=== PATIENT | female | born 2005 | race Two or more races ===

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

== ENCOUNTER 2025-01-19 14:34 | Outpatient (REF) | payer OTHER, SELFPAY | END 2025-01-19 14:35 | disposition home or self-care (01) | LOC: HO.LAB 14:34 | PROVIDERS: PCP Pediatrics; Visit Provider Pediatrics | DX: L65.0 Telogen effluvium (principal); L20.9 Atopic dermatitis, unspecified; F41.9 Anxiety disorder, unspecified; R00.0 Tachycardia, unspecified; Z13.39 Encounter for screening examination for other mental health and behavioral disorders | CPT/HCPCS: 36415; 84443; 96127 ==

== ENCOUNTER 2025-01-19 14:34 | Outpatient (AMB) | payer OTHER, SELFPAY ==
[2025-01-19 14:41] VITALS: BP 114/76; PULSE 67; TEMP 36.7; O2SAT 99; BMI 38.3
--- NOTE | 2025-01-19 14:41 | MHC.OFVISPED ---
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 no patches of hair loss. no scalp scaling or itching. she has been very stressed/ anxious and wonders if this is contributing 2) eczema has flared on wrists. previously resolved with triamcinolone but now flared again and no meds at home 3) anxiety. long standing issue and now is thinking she might benefit from meds. feels anxious all the time - about most things. working FT and very stressed about money. GF is having health issues and now so is GM. has a lot of trouble sleeping - frets/worries about things and will be up until 3 am. goes on her phone when she cant sleep which she knows makes things worse. no panic attacks - had when younger but not recently. [facility] Medical History (Updated 01/19/25 @ 15:09 by Flores Diana MD) Anxiety Frequent headaches Obesity Surgical History No pertinent past surgical history Family History Mother No problems noted. Father No problems noted. Brother No problems noted. Maternal Aunt Migraine Social History Household Members: Family Housing: House Alcohol intake: never Patient Tobacco Use Status: Never used Tobacco e-Cigarette/Vaping Use: Never Used Second Hand Smoke Exposure: No Cognitive needs: No Hearing needs: No Vision needs: No (Sees Eye Dr) Review of Systems Const Reports as per HPI Skin Reports as per HPI Psych Reports as per HPI Pediatric Exam Const Constitutional General: cooperative and no acute distress Resp Effort & Inspection: normal respiratory effort Skin General: other (eczema) Hair: general thinning (with visible new hair growth. 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 (2) Atopic eczema: Code(s): L20.9 - Atopic dermatitis, unspecified Category: Medical Plan: rx sent (3) Anxiety: Code(s): F41.9 - Anxiety disorder, unspecified Category: Medical Plan: Discussed medication for anxiety. discussed mechanism of action for SSRI and for hydroxyzine. Reviewed potential side effects and adverse reactions including BBW. Rx sent for sertraline + hydroxyzine as prn for sleep. Advised crisis for any suicidal ideation. Followup in 3 weeks. Orders: Orders TSH reflex Free T4 Today R00.0 - Tachycardia, unspecified Medications: New sertraline take 12.5 mg (0.5 tab) by mouth once daily for 1 week then increase to 25 mg (one tab)by mouth once daily 30 tabs 0RF hydroxyzine HCl can increase to 25 mg (1 tab) prn effect 12.5 mg (1/2 x 25 mg) PO BEDTIME PRN 30 tabs 0RF insomnia Refilled triamcinolone acetonide 0.025% 1 appl topical BID 80 grams 1RF 14 days Coding Level of Care Code Est Pt Level 4 (39902) Diagnoses Telogen effluvium L65.0 Atopic eczema L20.9 Anxiety F41.9 Additional Codes SHABBIR-7 Assessment Billing - SHABBIR-7 Assessment Tool: SHABBIR-7 Assessment 14378 ([id number]) SHABBIR-7 AMB Questionnaire SHABBIR-7 Date SHABBIR - 7 assessed: 01/19/25 Feeling nervous, anxious, or on edge: 3 = Nearly every day Not being able to stop or control worryin = More than half the days Worrying too much about different things: 3 = Nearly every day Trouble relaxin = Nearly every day Being so restless that it is hard to sit still: 2 = More than half the days Becoming easily annoyed or irritable: 2 = More than half the days Feeling afraid as if something awful might happen: 3 = Nearly every day Total SHABBIR-7 score (0-4 normal; 5-9 mild; 10-14 moderate; 15-21 severe): 18 Source: Developed by Drs. Eh Caro, Nisa Gillespie, Jamal Linares and colleagues, with an educational bronwyn from [employer] SHABBIR-7 Assessment Billing SHABBIR-7 Assessment Tool: SHABBIR-7 Assessment 56142
--- OUTSIDE RECORDS SUMMARY | 2025-01-19 18:55 | XMS_ITS | Encounter Summary ---
Author Organization [facility] Address [address] [place] [phone] Phone Care Team Providers Care Saw Cleaner Name Role Phone LebronFlores Primary Care Provider Encounter Details Date Type Department Care Team (Late st Contact Info) Description 09/02/2011 Conversion Encounter [facility] - [address] [address] Social History Tobacco Use Types Packs/Day Years Used Date Smoking Tobacco: Never Assessed Comments Unknown Sex and Gender Information Value Date Recorded Sex Assigned at Not on file Legal Sex Female 6:19 PM EDT Gender Identity Not on file Sexual Orientation Not on file documented as of this encounter Plan of Treatment Not on file documented as of this encounter Visit Diagnoses Not on filedocumented in this encounter Care Teams Saw Cleaner Relationship Specialty Start Date End Date Lebron Flores [address] [place] [address] PCP - General 07/30/17 documented as of this encounter
--- OUTSIDE RECORDS SUMMARY | 2025-01-19 18:55 | XMS_ITS | Clinical Summary ---
Author Organization [facility] Address [address] [place] [address] Phone Care Team Providers Care Broadcast Operations Technician Name Role Phone Flores Diana Primary Care Provider [phone] Immunizations Immunization Administration Dates Next Due DTaP 5 11/23/2010, 7,04/15/2006,2005,2005 Hep A, ped/adol 07/06/2007,10/13/2006 Hep B, ped/adol 04/15/2006, 6,2005,2005 Hib (PRP-T) 02/04/2007, 7,02/18/2006,2005 IPV 11/23/2010, 7,02/18/2006,2005 Influenza, injectable, quadr ivalent, preservative free 02/03/2015 Influenza, injectable, trivalent 01/01/2014,01/22 Influenza, injectable, triva lent, preservative free 01/15/2008,03/27/2007,02/04/2007 MMR 11/30/2009,10/13/2006 Pneumococcal Conjugate 02/04/2007,2006,02/18/2006,2005 Varicella 11/30/2009,10/13/2006 Social History Tobacco Use Types Packs/Day Years Used Date Smoking Tobacco: Never Assessed Comments Unknown Sex and Gender Information Value Date Recorded Sex Assigned at Not on file Legal Sex Female 6:19 PM EDT Gender Identity Not on file Sexual Orientation Not on file Last Filed Vital Signs Vital Sign Reading Time Taken Comments Blood Pressure - - Pulse 105 08/05/2015 11:25 AM EDT Temperature 38.4 C (101.2 F) 08/05/2015 11:25 AM EDT Respiratory Rate - - Oxygen Saturation 98% 08/05/2015 11: 25 AM EDT Inhaled Oxygen Concentration - - Weight 49.5 kg (109 lb 3.2 oz) 08/05/19 16 11:25 AM EDT Height 137.8 cm (4' 6.25 ) 08/05/2015 1 1:25 AM EDT Body Mass Index 26.09 08/05/2015 11:25 AM EDT Body Mass Index Percentile 97.79% 08/04 11:25 AM EDT Growth Chart: [facility] (Girls, 2- 20 Years) Plan of Treatment Health Maintenance Due Date Last Done Comments DTaP,Tdap,and Td Vaccines (6 - Tdap) 2016 11/23/2010, 02/04/2007, 04/15/2006, Additional history exists HPV Vaccines (1 - 3-dose series) 2020 Men B Vaccine (1 of 2 - Standard) 2021 Influenza Vaccines (#1) 2024 02/04/20 15, 01/01/2014, 02/08/2013, Additional history exists COVID-19 Vaccine ( - 2024- season) 2024 Hepatitis B Vaccines Completed 04/15/2006, 02/18/2006, 2005, Additional history exists HIB Vaccines Completed 02/04/2007, 03/25, 02/18/2006, Additional history exists Pneumococcal Vaccine Completed 02/04/2007, 04/15/2006, 02/18/2006, Additional history exists Hepatitis A Vaccines Completed 07/06/2007, 10/14/19 07 MMR Vaccines Completed 11/30/2009, 10/13/2006 Varicella Vaccines Completed 11/30/2009, 10/13/2006 IPV Vaccines Completed 11/23/2010, 03/25, 02/18/2006, Additional history exists Meningococcal Vaccine Aged Out No lauryn dolly eligible based on patient's age to complete this topic Care Teams Broadcast Operations Technician Relationship Specialty Start Date End Date Lebron Flores [address] [place] [address] PCP - General 07/30/17
--- OUTSIDE RECORDS SUMMARY | 2025-01-19 18:55 | XMS_ITS | Clinical Summary ---
Author Organization [facility] Address [address] [place] [address] Care Team Providers Care Data Reporting Analyst Name Role Phone Flores Diana MD Primary Care Provider + [phone] Allergies No known active allergies Medications No known medications Social History Tobacco Use Types Packs/Day Years Used Date Smoking Tobacco: Never Smokeless Tobacco: Never Comments No Sex and Gender Information Value Date Recorded Sex Assigned at Not on file Legal Sex Female 12:37 PM EDT Gender Identity Not on file Sexual Orientation Not on file Last Filed Vital Signs Vital Sign Reading Time Taken Comments Blood Pressure 118/76 08/09/2020 5:40 PM EDT Pulse 79 08/12/2020 3:10 PM EDT Temperature 36.7 C (98 F) 08/12/2020 3:10 PM EDT Respiratory Rate - - Oxygen Saturation 99% 08/12/2020 3:10 PM EDT Inhaled Oxygen Concentration - - Weight 102 kg (223 lb 12.8 oz) 08/09/2020 5:40 P M EDT Height 162.6 cm (5' 4 ) 08/09/2020 5:40 PM EDT Body Mass Index 38.42 08/09/2020 5:40 PM EDT Body Mass Index Percentile 99.57% 08/09/2020 5:4 0 PM EDT Growth Chart: CDC (Girls, 2- 20 Years) Plan of Treatment Health Maintenance Due Date Last Done Comments DTaP/Tdap/Td Vaccines ([facility]) (6 - Tdap) 2016 11/23/2010, 02/04/2007, 04/15/2006, Additional history exists Depression: Screening Annually using PHQ-2/9 in Adults 18 yrs or above (or HM Modifier)([facility]) 10/11/2023 Hepatitis C Virus Infection in Adolescents and Adults: Screening (or Modifier) ([facility]) 10/11/2023 SDOH Screening Reminder: Annually for all adults ([facility]) 10/11/2023 Tobacco Smoking Cessation: i n Adults excluding Women: Behavioral and Pharmacotherapy Interventions ([facility]) 10/11/2023 Flu Vaccination: Yearly for ages 18mos through 64 years (or Modifier)([facility]) 10/22/2024 COVID-19 Vaccine Screening: Initial Series and Booster Status ([facility]) (2023- season) 2024 Zoster/Shingles Vaccine Series Screening: Adults aged 18+ yrs (or HM Modifiers)([facility]) (1 of 2) 10/11/2055 11/30/2009, 10/13/2006 Pneumococcal Vaccination Screening: Pts 0-19 & 19-49 yrs of age ([facility]) Aged Out 02/04/2007, 04/15/2006, 02/18/2006, Additional history exists No longer eligible based on patient's age to complete this topic Medical Devices Not on file Insurance [place] [id number] [facility] [place] [address] [place] [phone] Care Teams Data Reporting Analyst Relationship Specialty Start Date End Date Flores Diana MD [address] [place] [address] [address] [place] [place] [phone] PCP - General Pediatrics 08/09/20
== END 2025-01-19 15:02 | disposition home or self-care (01) ==
LOC: HO.HMCP 14:35
PROVIDERS: PCP Pediatrics; Visit Provider Pediatrics
DX: L65.0 Telogen effluvium (principal); L20.9 Atopic dermatitis, unspecified; F41.9 Anxiety disorder, unspecified

== ENCOUNTER 2025-02-10 08:45 | Outpatient (AMB) | payer OTHER, SELFPAY ==
--- NOTE | 2025-02-10 08:46 | MHC.OFVISPED ---
Pediatric Intake Visit Reasons: [facility] med recheck [phone] Neuro Psych Sales Specialist Required: No Allergies Tomatoes Allergy (Unknown, Uncoded 01/19/25 14:42) Unknown Medication List - Last Reconciled 02/10/25 by Flores Diana MD hydroxyzine HCl 12.5 mg (1/2 x 25 mg) PO BEDTIME PRN sertraline take 12.5 mg (0.5 tab) by mouth once daily for 1 week then increase to 25 mg (one tab)by mouth once daily triamcinolone acetonide 0.025% 1 appl topical BID 14 days Dental Screening Dental Screen Date: 07/29/23 HPI HPI [facility] med recheck [phone]: Details: she is taking 25 mg sertraline and 25 mg hydroxyzine at bedtime. with this combination she is falling asleep easily and sleeping well through the night without disruption. she typically sleeps 11 pm to 8-9am. her mood has improved significantly. she feels much less anxious now. things that she couldnt stop herself worrying about no longer bother her like they did. she feels much calmer. work is going well and her grandparents are stable now. the only side effect she reports is feeling tired after taking meds. she does not have any daytime drowsiness or fatigue. she feels well rested and like she has a lot more energy during the day now. her hair continues to thin. thyroid studies were wnl. she would like to see [employer] bloom for this. [facility] Medical History (Updated 01/19/25 @ 15:09 by Flores Diana MD) Anxiety Frequent headaches Obesity Surgical History No pertinent past surgical history Family History Mother No problems noted. Father No problems noted. Brother No problems noted. Maternal Aunt Migraine Social History Household Members: Family Housing: House Alcohol intake: never Patient Tobacco Use Status: Never used Tobacco e-Cigarette/Vaping Use: Never Used Second Hand Smoke Exposure: No Cognitive needs: No Hearing needs: No Vision needs: No (Sees Eye Dr) Review of Systems Const Reports as per HPI Skin Reports as per HPI Psych Reports as per HPI Pediatric Exam Const Constitutional General: cooperative and no acute distress Resp Effort & Inspection: normal respiratory effort Psych Appearance: grossly normal Speech and movement: Normal speech and movement present Mood: congruent mood Attitude: cooperative Telehealth Telehealth Telehealth Platform: [employer] Location of provider rendering services: other Location of patient: address on file Patient Identification confirmed using: Name, : Yes Telehealth method: video Patient verbally consented to treatment: Yes Patient verbally consented to billing insurance company: Yes Patient informed of any privacy concerns related to visit: Yes Minutes spent on Phone/Video with Pt.: 25 Assessment & Plan Assessment & Plan (1) Anxiety: Code(s): F41.9 - Anxiety disorder, unspecified Category: Medical Plan: doing much better on combination of sertraline and hydroxyzine. sig improvement in SHABBIR score and self-reported anxiety sxs without side effect. discussed continuing sertraline at current dose with f/u in 3 mos/advised sooner appt for any worsening moods sxs. (2) Insomnia: Code(s): G47.00 - Insomnia, unspecified Plan: continue prn hydroxyzine for sleep. discussed trial 1/2 tab as she continues to feel well rested and less anxious as she may not continue to need hydroxyzine with the overall mood improvement she has had on sertraline. ok to continue with full tab if needed for effect. also reviewed sleep hygiene measures and encouraged her to continue with these. 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 Orders: Referrals Pediatric Dermatology Referral L65.0 - Telogen effluvium Medications: Changed From sertraline take 12.5 mg (0.5 tab) by mouth once daily for 1 week then increase to 25 mg (one tab)by mouth once daily 30 tabs 0RF To sertraline 25 mg PO DAILY 90 tabs 1RF 90 days From hydroxyzine HCl can increase to 25 mg (1 tab) prn effect 12.5 mg (1/2 x 25 mg) PO BEDTIME PRN 30 tabs 0RF insomnia To hydroxyzine HCl 25 mg PO BEDTIME PRN 30 tabs 2RF insomnia Patient Instructions: Take meds as prescribed and spend a minimum of 60 minutes daily on ?feel-good activities?.? Limit screen time to two hours or less. f/u in 3 months. Call CRISIS for any severe mood concerns especially any suicidal thoughts.? Coding Level of Care Code Tele Est Pt Level 4 (59596) Diagnoses Anxiety F41.9 Insomnia G47.00 Telogen effluvium L65.0 Additional Codes SHABBIR-7 Assessment Billing - SHABBIR-7 Assessment Tool: SHABBIR-7 Assessment 39069 ([id number]) SHABBIR-7 AMB Questionnaire SHABBIR-7 Date SHABBIR - 7 assessed: 02/10/25 Feeling nervous, anxious, or on edge: 1 = Several days Not being able to stop or control worryin = Several days Worrying too much about different things: 1 = Several days Trouble relaxin = Not at all Being so restless that it is hard to sit still: 0 = Not at all Becoming easily annoyed or irritable: 0 = Not at all Feeling afraid as if something awful might happen: 1 = Several days Total SHABBIR-7 score (0-4 normal; 5-9 mild; 10-14 moderate; 15-21 severe): 4 Source: Developed by Drs. Eh Caro, Nisa Gillespie, Jamal Linares and colleagues, with an educational bronwyn from [employer]. SHABBIR-7 Assessment Billing SHABBIR-7 Assessment Tool: SHABBIR-7 Assessment 88541
== END 2025-02-10 08:48 | disposition home or self-care (01) ==
PROVIDERS: PCP Pediatrics; Visit Provider Pediatrics
DX: F41.9 Anxiety disorder, unspecified (principal); G47.00 Insomnia, unspecified; L65.0 Telogen effluvium

== ENCOUNTER → 2025-02-10 08:45 | Outpatient (BNVA) | payer OTHER, SELFPAY | PROVIDERS: PCP Pediatrics; Visit Provider Pediatrics | DX: L65.0 Telogen effluvium (principal); F41.9 Anxiety disorder, unspecified; G47.00 Insomnia, unspecified; Z79.899 Other long term (current) drug therapy; Z13.39 Encounter for screening examination for other mental health and behavioral disorders | CPT/HCPCS: 96127 ==

== ENCOUNTER 2025-03-02 11:05 | Outpatient (AMB) | payer OTHER, SELFPAY ==
--- NOTE | 2025-03-02 11:13 | MHC.AMWC19YF ---
Vital Signs 03/02/25 11:15 Height 5 ft 3.19 in Height percentile 50 Weight 220 lb 8 oz Weight percentile 97 BMI 38.8 BMI percentile 97 Temp 98.3 F Temp Source Oral Pulse 75 Pulse Source Pulse Oximeter BP 116/62 Pulse Oximetry (%) 99 Pediatric Intake Visit Reasons: [facility] 19 year female/ med recheck Sliver Handler Required: No Accompanied by: Self / Same As Patient Allergies Tomatoes Allergy (Unknown, Uncoded 03/02/25 11:14) Unknown Medication List - Last Reconciled 03/02/25 by Flores Diana MD hydroxyzine HCl 25 mg PO BEDTIME PRN sertraline 25 mg PO DAILY 90 days triamcinolone acetonide 0.025% 1 appl topical BID 14 days Dental Screening Dental Screen Date: 03/02/25 Did your child have a dental visit in the last 12 months for preventative care, such as check-ups/dental cleaning?: Yes Was there a time your child needed dental care in the last 12 months, but was not received?: No Was dental information given to patient?: Patient has dentist [facility] 18-21 Year Female last WCC: 1.5 yrs ago interval: started on setraline for anxiety - doing much better on it concerns: none Nutrition she does not think her diet is very healthy because the healthy foods are more expensive . she is eating cheap, prepared foods. minimal fresh produce. she does not drink milk because she is lactose intolerant. she has used the tablets in the past with good effect Exercise Sports and activities: Reports watches <2 hours of screen time daily Exercise frequency: does not exercise Genitourinary Bowel movements: normal Urine output: normal Elimination problems: none Genitourinary: LMP known (1 mo ago) Menstrual flow/appetite: normal (regular cycles/ no dysmenorrhea) Dental Dental care: Reports receives dental care Behavioral Behavior: normal peer interactions Mental health: normal mood Educational/Employment she works FT at [employer] in [employer]. 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 she does want to get back into it eventually Living situation: other (lives with GF and GF's mother and younger brother. has been with GF x 7 mos) education: does not attend school Sexual Sexual preference: prefers women Sleep now sleeping really well with sertraline and hydroxyzine at bedtime. 11 p to 8-9a Sleep location: 4-7 years: own bed Sleep problems: No Safety Car safety: well child 16-17 years: seat belt Bicycle/ATV safety: rides a bicycle and wears a helmet Home Safety: safe practices around pool and water, Has poison control number, Water heater temp <120, Working smoke detector in home, Working carbon monoxide detector in home and Fire Extinguisher in home [facility] Substance Abuse Tobacco History Patient Tobacco Use Status: Never used Tobacco Alcohol History Alcohol intake: never Substance Use History Use of substances other than those prescribed or required for medical reasons: No Pediatric Weight Assessment Diet counseling done: Yes Physical activity counseling done: Yes [facility] Medical History Anxiety Frequent headaches Obesity Surgical History No pertinent past surgical history Family History Mother No problems noted. Father No problems noted. Brother No problems noted. Maternal Aunt Migraine Social History Household Members: Family Housing: House Alcohol intake: never Patient Tobacco Use Status: Never used Tobacco e-Cigarette/Vaping Use: Never Used Second Hand Smoke Exposure: No Cognitive needs: No Hearing needs: No Vision needs: No (Sees Eye ) CRAFFT Screening Tool PART A: In the PAST 12 MONTHS, did you: Drink any alcohol (more than few sips)? (Do not count sips of alcohol taken during family or baptism events.): No Smoke any marijuana or hashish?: Yes Use anything else to get high? (includes illegal drugs, over the counter/prescription drugs, or things that you sniff/ferrer?): No PART B: If answered YES to ANY above: Have you ever been in a CAR driven by someone (including yourself) who was high or had been using alcohol or drugs?: No Do you ever use alcohol or drugs to RELAX, feel better about yourself, or fit in?: No Do you ever use alcohol or drugs while you are by yourself, or ALONE?: No Do you ever FORGET things while using alcohol or drugs?: No Do your FAMILY or FRIENDS ever tell you that you should cut down on your drinking or drug use?: No Have you ever gotten into TROUBLE while you were using alcohol or drugs?: No CRAFFT Assessment Charge Crafft: CRAFFT 46022 PHQ-9 Over the last 2 weeks, how often have you been bothered by any of the following problems? Depression Screening Interpretation: Negative Depression Screening Done: Yes 38876 - PHQ-9 Billing: Yes Source: Developed by Drs. Eh Caro, Nisa Gillespie, Jamal Linares and colleagues, with an educational bronwyn from [employer]. Review of Systems Const All systems reviewed & are unremarkable except as noted in HPI and below PE 13-21 years Constitutional General: alert and active Nutritional appearance: well nourished HENMT Ears: Reports external ears normal, TMs normal bilaterally and EAC's normal Teeth: Reports dentition normal Throat: Reports posterior oropharynx normal Eyes Eyes: Reports appearance normal Conjunctivae: Reports conjunctivae normal Pupils: Reports PERRL EOM: Reports EOM intact bilaterally Neck Appearance: Reports normal appearance, no masses and FROM Lymphatic: Reports no lymphadenopathy noted Resp Effort & Inspection: Reports normal respiratory effort Auscultation: Reports clear to auscultation bilaterally Cardio Rate: Reports regular rate Rhythm: Reports regular rhythm Heart sounds: Reports S1 normal and S2 normal (no murmur) GI Palpation: Reports soft, non-tender, no hepatomegaly, no splenomegaly and no masses Auscultation: Reports normal bowel sounds Musc Thoracic/Lumbar Spine: Reports thoracic and lumbar spine normal to inspection Skin General: Reports no rashes or lesions noted Neuro General: Reports oriented Motor Exam: Reports normal strength and tone (CN 2-12 grossly normal) and normal gait and balance Assessment & Plan Assessment & Plan (1) Encounter for well adult exam without abnormal findings: Code(s): Z00.00 - Encounter for general adult medical examination without abnormal findings Plan: Discussed age-appropriate AG including peer relationships/peer pressure, family relationships, healthy relationships/sexuality, internet safety, drug/alcohol/cigarette/vaping/marijuana avoidance, sleep, healthy diet, importance of daily physical activity, mood, stress management, conflict management, driving safety, seatbelt use, dental health, future plans, gun safety rx sent for MVI and lactase tablets (2) Anxiety: Code(s): F41.9 - Anxiety disorder, unspecified Category: Medical Plan: doing well on current regimen. continue as prescribed. f/u 3 mos/sooner prn (3) Food insecurity: Code(s): Z59.41 - Food insecurity Category: Medical Plan: message to CN (4) Obesity: Code(s): E66.9 - Obesity, unspecified Category: Medical Qualifiers: Obesity type: unspecified obesity type Obesity classification: pediatric obesity Serious obesity comorbidity presence: without serious comorbidity Body mass index: BMI > 99th percentile Qualified Code(s): E66.9 - Obesity, unspecified; Z68.54 - Body mass index [BMI] pediatric, greater than or equal to 95th percentile for age Plan: discussed. message to CN for counseling referral Medications: New lactase (Lactaid Fast Act) administer with dairy 9,000 units PO QID PRN 100 tabs 1RF lactose intolerance multivitamin 1 tab PO DAILY 90 tabs 1RF Patient Instructions: for anxiety: Take meds as prescribed and spend a minimum of 60 minutes daily on ?feel-good activities?.? Limit screen time to two hours or less.? f/u in 3 months. Call CRISIS for any severe mood concerns especially any suicidal thoughts.? for obesity: Eat a? balanced diet that includes fruits, vegetables, lean proteins, and whole grains. Limit intake of sugary drinks and processed foods.? Try for at least 60 minutes of physical activity daily.? Limit screen time to two hours or less per day. F Coding Level of Care Code Est Pt Prev Care 18-39y(62611) Diagnoses Encounter for well adult exam without abnormal findings Z00.00 Anxiety F41.9 Food insecurity Z59.41 Obesity without serious comorbidity with body mass index (BMI) greater than 99th percentile for age in pediatric patient, unspecified obesity type E66.9; Z68.54 Obesity type: unspecified obesity type Obesity classification: pediatric obesity Serious obesity comorbidity presence: without serious comorbidity Body mass index: BMI > 99th percentile Additional Codes CRAFFT Assessment Charge - Crafft: CRAFFT 62873 ([id number]) SHABBIR-7 Assessment Billing - SHABBIR-7 Assessment Tool: SHABBIR-7 Assessment 97325 ([id number]) PHQ-9 - 62597 - PHQ-9 Billing: Yes ([id number]) Thrive Questionnaire Date Thrive assessed: 03/02/25 I am a: Patient What is your living situation today?: I have a steady place to live Within the past 12 months, did the food you bought not last and you didn't have the money to get more?: Sometimes True Within the past 12 months, did you worry whether your food would run out before you got money to buy more?: Sometimes True Do you have trouble paying for medicines?: Yes Do you have trouble getting transportation to medical appointments?: No Do you have trouble paying your heating and electricity bill?: No Do you have trouble taking care of your child, family member or friend?: No Do you have trouble with day-to-day activities such as bathing, preparing meals, shopping, managing finances, etc.?: No Are you currently unemployed and looking for a job?: No Are you interested in more education?: No Please select the resources that you would like help with: Food and Paying for medicine THRIVE Score: 2 SHABBIR-7 AMB Questionnaire SHABBIR-7 Date SHABBIR - 7 assessed: 03/02/25 Feeling nervous, anxious, or on edge: 1 = Several days Not being able to stop or control worryin = Not at all Worrying too much about different things: 0 = Not at all Trouble relaxin = Not at all Being so restless that it is hard to sit still: 0 = Not at all Becoming easily annoyed or irritable: 0 = Not at all Feeling afraid as if something awful might happen: 0 = Not at all Total SHABBIR-7 score (0-4 normal; 5-9 mild; 10-14 moderate; 15-21 severe): 1 Source: Developed by Drs. Eh Caro, Nisa Gillespie, Jamal Linares and colleagues, with an educational bronwyn from [employer]. SHABBIR-7 Assessment Billing SHABBIR-7 Assessment Tool: SHABBIR-7 Assessment 64684 PHQ-9: Modified for Teens Feeling down, depressed, irritable or hopeless?: Not at all Little interest or pleasure in doing things?: Not at all Trouble falling asleep, staying asleep, or sleeping too much?: Not at all Poor appetite, weight loss or overeating?: Not at all Feeling tired, or having little energy?: Several Days Feeling bad about yourself-or feeling that you are a failure, or that you let yourself/your family down?: Several Days Trouble concentrating on things like school work, reading, or watching TV?: Several Days Moving/speaking so slowly that other people have noticed? Or the opposite-being so fidgety that you were moving more than usual?: Not at all Thoughts that you would be better off , or of hurting yourself in some way?: Not at all In the past year have you felt depressed or sad most days, even if you felt okay sometimes?: No How difficult have these problems made it for you to do your work, take care of things at home, or get along with other?: Somewhat difficult Has there been a time in the past month when you have had serious thoughts about ending your life?: No Have you ever, in your entire life, tried to kill yourself or made a suicide attempt?: No Score: 3 Depression Screening Interpretation: Negative Depression Screening Done: Yes
[2025-03-02 11:15] VITALS: BP 116/62; PULSE 75; TEMP 36.8; O2SAT 99; BMI 38.8
--- OUTSIDE RECORDS SUMMARY | 2025-03-02 17:31 | XMS_ITS | Clinical Summary ---
Author Organization [facility] Address [address] [place] [address] Phone Care Team Providers Care Wastewater Supervisor Name Role Phone Flores Diana Primary Care Provider [phone] Immunizations Immunization Administration Dates Next Due DTaP [...] 97.79% 08/04 11:25 AM EDT Growth Chart: [facility] (Girls, 2- 20 Years) Plan of Treatment [...] age to complete this topic Care Teams Wastewater Supervisor Relationship Specialty Start Date End Date Lebron Flores [address] [place] [address] PCP - General 07/30/17
== END 2025-03-02 11:40 | disposition home or self-care (01) ==
LOC: HO.HMCP 11:06
PROVIDERS: PCP Pediatrics; Visit Provider Pediatrics
DX: Z00.00 Encounter for general adult medical examination without abnormal findings (principal); F41.9 Anxiety disorder, unspecified; Z59.41 Food insecurity; E66.9 Obesity, unspecified; Z68.54 Body mass index [BMI] pediatric, 95th percentile for age to less than 120% of the 95th percentile for age

== ENCOUNTER → 2025-03-02 11:05 | Outpatient (BNVA) | payer OTHER, SELFPAY | PROVIDERS: PCP Pediatrics; Visit Provider Pediatrics | DX: Z00.00 Encounter for general adult medical examination without abnormal findings (principal); F41.9 Anxiety disorder, unspecified; E66.9 Obesity, unspecified; Z68.54 Body mass index [BMI] pediatric, 95th percentile for age to less than 120% of the 95th percentile for age; Z59.41 Food insecurity; Z13.31 Encounter for screening for depression; Z13.39 Encounter for screening examination for other mental health and behavioral disorders | CPT/HCPCS: 96127; 96160 ==